=== PATIENT | male | born 1940 | race Caucasian/White ===

== ENCOUNTER 2017-07-15 15:57 | Emergency (ER) | payer OTHER ==
[2017-07-15 16:05] VITALS: BMI 28.1
--- NOTE | 2017-07-15 16:10 | PDOC ---
History of Present Illness - General Chief Complaint: Alcohol intoxication Stated Complaint: ALCOHOL INTOX Time Seen by Provider: 07/15/17 16:00 - History of Present Illness Initial Comments: 07/15/17 16:09 76 yo M with h/o HTN, HLD, who presents with fall 2/2 EtOH intoxication. Patient family at bedside to assist in report. 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 Witnessed by neighbor who called EMS. Patient denies head/neck/back trauma. Denies N/V, F/C, SOB, CP, lightheadedness, urinary complaints, abdominal pain, diarrhea, constipation, weakness, sensory changes, SAUL. Daughter reports daily alcohol intoxication for the past 15-20 years. He has frequent remission-relapsing periods for 6 months at a time. Patient reports no interest in rehabilitation. Denies tobacco or h/o IV drug use. Past History - Past Medical History Allergies/Adverse Reactions: Allergies Allergy/AdvReac Type Severity Reaction Status Date / Time No Known Allergies Allergy Verified 07/15/17 16:05 Home Medications: Ambulatory Orders Amlodipine Besylate 5 mg PO DAILY 07/15/17 Lovastatin 20 mg PO DAILY 07/15/17 Triamterene/Hydrochlorothiazid [Triamterene-Hctz 37.5-25 mg Cp] 1 each PO DAILY 07/15/17 COPD: No HTN: Yes Hypercholesterolemia: Yes - Suicide/Smoking/Psychosocial Hx Smoking Status: No Smoking History: Never smoked Have you smoked in the past 12 months: No Number of Cigarettes Smoked Daily: 0 Information on smoking cessation initiated: No Hx Alcohol Use: No Drug/Substance Use Hx: No Substance Use Type: Alcohol Review of Systems - Review of Systems Comments:: 07/15/17 16:10 GENERAL/CONSTITUTIONAL: No fever or chills. No weakness. HEAD, EYES, EARS, NOSE AND THROAT: No change in vision. No ear pain or discharge. No sore throat.- CARDIOVASCULAR: No chest pain or shortness of breath RESPIRATORY: No cough, wheezing, or hemoptysis. GASTROINTESTINAL: No nausea, vomiting, diarrhea or constipation. GENITOURINARY: No dysuria, frequency, or change in urination. MUSCULOSKELETAL: No joint or muscle swelling or pain. No neck or back pain. SKIN: No rash NEUROLOGIC: No headache, vertigo, loss of consciousness, or change in strength/ sensation. ENDOCRINE: No increased thirst. No abnormal weight change HEMATOLOGIC/LYMPHATIC: No anemia, easy bleeding, or history of blood clots. ALLERGIC/IMMUNOLOGIC: No hives or skin allergy. *Physical Exam - Vital Signs Last Vital Signs Temp Pulse Resp BP Pulse Ox 97 F L 92 H 18 134/69 95 07/15/17 16:00 07/15/17 16:00 07/15/17 16:00 07/15/17 16:00 07/15/17 16:00 - Physical Exam Comments: 07/15/17 16:10 GENERAL: Awake, alert, and fully oriented, in no acute distress HEAD: No signs of trauma, normocephalic, atraumatic EYES: PERRLA, EOMI, sclera anicteric, conjunctiva clear ENT: Auricles normal inspection, hearing grossly normal, nares patent, oropharynx clear without exudates. Moist mucosa NECK: Normal ROM, supple, no lymphadenopathy, JVD, or masses LUNGS: No distress, speaks full sentences, clear to auscultation bilaterally HEART: Regular rate and rhythm, normal S1 and S2, no murmurs, rubs or gallops, peripheral pulses normal and equal bilaterally. ABDOMEN: Soft,, distended, normoactive bowel sounds. No guarding, no rebound. No masses EXTREMITIES : Normal inspection, Normal range of motion, no edema. No clubbing or cyanosis. NEUROLOGICAL: Ataxic gait. Cranial nerves II through XII grossly intact. Normal speech, no focal sensorimotor deficits. SKIN: Warm, Dry, normal turgor, no rashes or lesions noted. ED Treatment Course - LABORATORY CBC & Chemistry Diagram: 07/15/17 16:40 07/15/17 16:40 Medical Decision Making - Medical Decision Making 07/15/17 16:35 76 yo M with h/o HTN, HLD, EtoH dependence who presents with fall 2/2 EtOH intoxication 1 hour SHOW HOST OR HOSTESS coming home from bar. Patient denies head/neck/back trauma. Denies N/V, F/C, SOB, CP, lightheadedness, urinary complaints, abdominal pain, diarrhea, constipation, weakness, sensory changes, SALU. Daughter reports daily alcohol intoxication for the past 15-20 years. Patient reports no interest in rehabilitation detox program. Physical exam unremarkable. Head is atraumatic with neg midline spinal tenderness. Gait slightly ataxic. Hemodynamically stable. No evidence of basilar skull fracture on physical exam ( postauricular echymosis, perioribtal ecchymosis, CSF rhinorrhea). Absent s/s of alcoholic withdrawal. Will obtain formal head and neck imaging in setting of EtoH intoxication, age, comorbidities. Will also assess for underlying precipitators such as electrolyte abnormalities, metaboilic disturbances, or infection. ED Course: CBC, CMP, Cardiac Pr., POC Glucose EKG, CXR, UA Banan Bag CT HEAD, C-SPINE 07/15/17 17:34 CBC/CMP: Unremarkable 07/15/17 18:08 Alcohol level: 371 07/15/17 18:09 UA: Neg 07/15/17 18:38 EKG: NSR with absent PAMELA, STD, or TWI. Absent STD, or PAMELA. CXR CT HEAD, CT C SPINE: Unremarkable. No acute fracture,or subluxation. No acute intracranial hemorrhage Patient stable at bedside and safe for d/c with return precautions. *DC/Admit/Observation/Transfer Diagnosis at time of Disposition: Alcohol abuse Fall Qualifiers: Encounter type: initial encounter Qualified Code(s): W19.XXXA - Unspecified fall, initial encounter - Discharge Dispostion Disposition: HOME Condition at time of disposition: Stable - Referrals Referrals: Solitario Tamayo [Primary Care Provider] - - Patient Instructions Printed Discharge Instructions: DI for Alcohol Abuse Additional Instructions: Please return to the emergency department with any new or worsening symptoms or concerns. Please follow up with your primary medical doctor within one week. - Post Discharge Activity - Attestations Physician Attestion: 07/15/17 18:46 I attest to the information provided in this note.
[2017-07-15] MEDS ORDERED: FOLIC ACID INJECTION - 1 MG, THIAMINE HCL 100 MG, MULTIVIT INJECTION ADULT 10 ML in SOD... IVPB ONE (16:19)
[2017-07-15 17:32] LABS: BASO % 0.4 % (0-2.0); EOS % 2.8 % (0-4.5); HEMATOCRIT 47.2 % (35.4-49); HEMOGLOBIN 15.5 GM/dL (11.7-16.9); LYMPH % 29.3 % (8-40); MCH 32.6 pg (25.7-33.7); MEAN PLT VOLUME 7.7 fl (7.5-11.1); MONO % 8.8 % (3.8-10.2); NEUT % 58.7 % (42.8-82.8); PLATELET COUNT 166 K/MM3 (134-434); RBC 4.76 M/mm3 (4.00-5.60); RDW 15.8 % (11.9-15.9)
[2017-07-15 17:42] LABS: URINE APPEARANCE CLEAR; URINE BILIRUBIN NEGATIVE (NEGATIVE); URINE BLOOD NEGATIVE (NEGATIVE); URINE COLOR STRAW; URINE GLUCOSE (UA) NEGATIVE (NEGATIVE); URINE KETONE NEGATIVE (NEGATIVE); URINE LEUK ESTERASE NEGATIVE (NEGATIVE); URINE NITRITE NEGATIVE (NEGATIVE); URINE PROTEIN NEGATIVE (NEGATIVE); URINE UROBILINOGEN NEGATIVE mg/dL (0.2-1.0)
[2017-07-15 18:00] LABS: ALBUMIN 4.3 g/dl (3.4-5.0); ANION GAP 10 (8-16); BLOOD UREA NITROGEN 9 mg/dL (7-18); CALCIUM 8.8 mg/dL (8.5-10.1); CHLORIDE 104 mmol/L (98-107); CO2 29 mmol/L (21-32); CREATININE 0.8 mg/dL (0.7-1.3); GLUCOSE,RANDOM 95 mg/dL (74-106); SGOT/AST 108 U/L (15-37); SGPT/ALT 84 U/L (12-78); SODIUM 143 mmol/L (136-145)
[2017-07-15 18:03] LABS: ALK PHOS 108 U/L (45-117); BILIRUBIN,TOTAL 0.6 mg/dL (0.2-1.0)
[2017-07-15 18:06] LABS: LIPASE 313 U/L (73-393)
--- NOTE | 2017-07-15 18:59 | PDOC ---
Attending Attestation - Resident Resident Name: EvgenyJohnScotty - ED Attending Attestation I have performed the following: I have examined & evaluated the patient, The case was reviewed & discussed with the resident, I agree w/resident's findings & plan, Exceptions are as noted - HPI HPI: 07/15/17 18:57 76 yo BIBA after falling at home admits to drinking alcohol ,family is present - Physicial Exam PE: 07/15/17 18:59 76 yo male YAW after falling head no scalp lacerations neck no cervical vertebral tenderenss lungs cta b/l 'cvs [id number] abd nontendner extremities no deformities,moving all limbs neuro axox3 despite alcohol intake - Medical Decision Making 07/15/17 19:01 ct head no acute intracranil pathology no fx,no bleed ct neck no acute fracture
[2017-07-15 19:19] VITALS: BP 135/78; PULSE 86; TEMP 97.8
--- NOTE | 2017-07-16 12:49 | EKG ---
Test Reason : Blood Pressure : / mmHG Vent. Rate : 082 BPM Atrial Rate : 246 BPM P-R Int : 000 ms QRS Dur : 090 ms QT Int : 398 ms P-R-T Axes : 103 038 029 degrees QTc Int : 464 ms SINUS RHYTHM WITH 1ST DEGREE AV BLOCK ABNORMAL ECG WHEN COMPARED WITH ECG OF 13-FEB-2015 19:15, NO SIGNIFICANT CHANGE WAS FOUND Confirmed by LUIS FALL MD ([id number]) on 07/16/2017 12:48:49 PM Referred By: Confirmed By:LUIS FALL MD
== END 2017-07-15 19:29 | disposition home or self-care (01) ==
LOC: JER 15:57
DX: F10.220 Alcohol dependence with intoxication, uncomplicated (principal); Y90.8 Blood alcohol level of 240 mg/100 ml or more; S00.83XA Contusion of other part of head, initial encounter; W18.39XA Other fall on same level, initial encounter; Y93.89 Activity, other specified; Y92.014 Private driveway to single-family (private) house as the place of occurrence of the external cause; Y99.8 Other external cause status
CPT/HCPCS: 36415; 70450-TC; 71045-TC; 72125-TC; 80053; 80307; 81003; 82550; 82553; 83690; 84484; 85025; 93005; 93010; 99283-25

== ENCOUNTER 2017-08-12 18:25 | Emergency (ER) | payer OTHER, BC ==
[2017-08-12 18:32] VITALS: PULSE 72; TEMP 97.7; BMI 26.6
--- NOTE | 2017-08-12 18:47 | PDOC ---
History of Present Illness - History of Present Illness Initial Comments: 08/12/17 18:54 Patient is a 77 M, with PMHx of HTN, HLD, former heavy EtOH use, who presents today for 1 week of constipation. Patient states that he quit drinking alcohol 5 weeks ago. He reports that for the past week hes been experiencing constipation. He took the [place] version of Dulcolax 5 days ago and has been experiencing episodes of diarrhea. He states he hasn't have a bowel movement since. Today the patients' daughter gave him Miralax with coffee at 1:00 pm. He also reports 1 week of shooting left leg pain when he wakes up at 3-4 am that last for approximately 5-10 minutes. He reports no changes in his eating habits. He states he is able to pass gas normally. He denies abdominal pain, vomiting, fever, no new urinary complaints. Social Hx: ceased EtOH use 5 weeks ago. <Jackie Miller - Last Filed: 08/12/17 19:02> <Shelia Cazares - Last Filed: 08/20/17 20:01> - General Chief Complaint: Constipation Stated Complaint: constipation Time Seen by Provider: 08/12/17 18:47 Past History <Jackie Miller - Last Filed: 08/12/17 19:02> - Past Medical History COPD: No HTN: Yes Hypercholesterolemia: Yes - Suicide/Smoking/Psychosocial Hx Smoking Status: No Smoking History: Never smoked Have you smoked in the past 12 months: No Number of Cigarettes Smoked Daily: 0 Hx Alcohol Use: No Drug/Substance Use Hx: No Substance Use Type: Alcohol <Shelia Cazares - Last Filed: 08/20/17 20:01> - Past Medical History Allergies/Adverse Reactions: Allergies Allergy/AdvReac Type Severity Reaction Status Date / Time No Known Allergies Allergy Verified 08/12/17 18:26 Home Medications: Ambulatory Orders Amlodipine Besylate 5 mg PO DAILY 07/15/17 Lovastatin 20 mg PO DAILY 07/15/17 Triamterene/Hydrochlorothiazid [Triamterene-Hctz 37.5-25 mg Cp] 1 each PO DAILY 07/15/17 Bisacodyl [Dulcolax] 5 mg PO DAILY #30 tablet. 08/12/17 Review of Systems - Review of Systems Comments:: 08/12/17 18:54 GENERAL/CONSTITUTIONAL: No fever or chills. No weakness. HEAD, EYES, EARS, NOSE AND THROAT: No change in vision. No ear pain or discharge. No sore throat. CARDIOVASCULAR: No chest pain or shortness of breath. RESPIRATORY: No cough, wheezing, or hemoptysis. GASTROINTESTINAL: No nausea, no vomiting, +diarrhea, +constipation. GENITOURINARY: No dysuria, frequency, or change in urination. MUSCULOSKELETAL: +left leg pain. No joint swelling or pain. No neck or back pain. SKIN: No rash NEUROLOGIC: No headache, vertigo, loss of consciousness, or change in strength/ sensation. ENDOCRINE: No increased thirst. No abnormal weight change. HEMATOLOGIC/LYMPHATIC: No anemia, easy bleeding, or history of blood clots. ALLERGIC/IMMUNOLOGIC: No hives or skin allergy. <Jackie Miller - Last Filed: 08/12/17 19:02> *Physical Exam - Vital Signs Last Vital Signs Temp Pulse Resp BP Pulse Ox 97.7 F 72 18 176/95 97 08/12/17 18:26 08/12/17 18:26 08/12/17 18:26 08/12/17 18:26 08/12/17 18:26 - Physical Exam Comments: 08/12/17 18:55 GENERAL: Awake, alert, and fully oriented, in no acute distress HEAD: No signs of trauma EYES: PERRLA, EOMI, sclera anicteric, conjunctiva clear ENT: Auricles normal inspection, hearing grossly normal, nares patent, oropharynx clear without exudates. Moist mucosa NECK: Normal ROM, supple, no lymphadenopathy, JVD, or masses LUNGS: Breath sounds equal, clear to auscultation bilaterally. No wheezes, and no crackles HEART: Regular rate and rhythm, normal S1 and S2, no murmurs, rubs or gallops ABDOMEN: Obese, soft, nontender, non distended, normoactive bowel sounds. No guarding, no rebound. No masses EXTREMITIES: Normal range of motion, no edema. No clubbing or cyanosis. No cords, erythema, or tenderness NEUROLOGICAL: Cranial nerves II through XII grossly intact. Normal speech, normal gait SKIN: Warm, Dry, normal turgor, no rashes or lesions noted. <Jackie Miller - Last Filed: 08/12/17 19:02> - Vital Signs Last Vital Signs Temp Pulse Resp BP Pulse Ox 97.7 F 72 18 176/95 97 08/12/17 18:26 08/12/17 18:26 08/12/17 18:26 08/12/17 18:26 08/12/17 18:26 <Shelia Cazares - Last Filed: 08/20/17 20:01> ED Treatment Course - LABORATORY CBC & Chemistry Diagram: 08/12/17 19:15 08/12/17 19:15 <Shelia Cazares - Last Filed: 08/20/17 20:01> Medical Decision Making - Medical Decision Making 08/20/17 20:00 Pt presents to the ED complaining of intermittent constipation without other signs or symptoms constistent with obstruction. Will check albs and KUB and discharge home if negative. <Shelia Cazares - Last Filed: 08/20/17 20:01> *DC/Admit/Observation/Transfer - Attestations Scribe Attestion: 08/12/17 18:56 Documentation prepared by Jackie Miller, acting as medical accounts receivable specialist for Shelia Cazares MD. <Jackie Miller - Last Filed: 08/12/17 19:02> <Shelia Cazares - Last Filed: 08/20/17 20:01> Diagnosis at time of Disposition: Constipation - Discharge Dispostion Disposition: HOME Condition at time of disposition: Stable - Prescriptions Prescriptions: Bisacodyl [Dulcolax] 5 mg PO DAILY #30 tablet.dr - Patient Instructions Additional Instructions: Purchase some [id number]-tfo-swvsigl fiber all her Metamucil and take as directed on the bottle. In addition to that take 1 Dulcolax a day if you find out 1 Dulcolax a day in addition to the Fiberall is giving U diarrhea. The Dulcolax to continue the Fiberall. Call your doctor on Sunday and get an appointment for this next week if at all possible. Return to the emergency department immediately with ANY new, persistent or worsening symptoms. Continue any medications as previously prescribed by your physician. You should follow up with your primary doctor as soon as possible regarding today's emergency department visit. . Please make sure your doctor reviews the results of your emergency evaluation. Thank you for coming to the Emergency Department today for your care. It was a pleasure to see you today. Please note that your evaluation is INCOMPLETE until you follow-up with your doctor.
--- NOTE | 2017-08-12 19:30 | PDOC ---
*Physical Exam - Vital Signs Last Vital Signs Temp Pulse Resp BP Pulse Ox 97.7 F 72 18 176/95 97 08/12/17 18:26 08/12/17 18:26 08/12/17 18:26 08/12/17 18:26 08/12/17 18:26 ED Treatment Course - LABORATORY CBC & Chemistry Diagram: 08/12/17 19:15 08/12/17 19:15 Progress Note - Progress Note Progress Note: 19:00 Care of this patient was transferred to [place] from Dr. Cazares at 1900 hrs. This is a 77-year-old male who has had no bowel movement 5 days and was brought in by his family to rule out obstruction. Patient has no complaints of abdominal pain there's been no vomiting or nausea. There's been no fevers or any other complaints. Patient has a significant history of chronic heavy alcohol use which he stopped 5 weeks ago and says he has not had anything to drink 5 weeks. Will follow-up with KUB x-rays and labs. We will reassess. 19:30 KUB shows multiple dilated loops of bowel however is a supine x-ray so unable to determine if there is air-fluid levels but most likely given the large amount of dilated bowel that there is a probable obstruction. CT abdomen and pelvis ordered with IV contrast. 20:30 CT abdomen and pelvis show no obstruction. There is multiple loops that are air- filled in the upper abdomen with a moderate amount of stool in the colon. Otherwise no acute pathology. 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 Patient appears to be in a constipation cycle this time a complete workup was done as he is elderly and has not been worked up for these symptoms. He has a normal CBC a normal white count and no left shift. His chemistries are also normal. He had a CAT scan that was essentially normal with the exception of constipation. I discussed with him and his daughter the importance of staying well hydrated, getting some Metamucil or fiber and taking on a daily basis. I also said a prescription for Dulcolax to the pharmacy that he can take if the Metamucil was not enough I also instructed him his daughter to call his primary care doctor and push to get an appointment as soon as possible *DC/Admit/Observation/Transfer Diagnosis at time of Disposition: Constipation Qualifiers: Constipation type: slow transit constipation Qualified Code(s): K59.01 - Slow transit constipation - Discharge Dispostion Disposition: HOME Condition at time of disposition: Stable Admit: No - Prescriptions Prescriptions: Bisacodyl [Dulcolax] 5 mg PO DAILY #30 tablet. - Referrals - Patient Instructions Additional Instructions: Purchase some [id number]-[id number] fiber all her Metamucil and take as directed on the bottle. In addition to that take 1 Dulcolax a day if you find out 1 Dulcolax a day in addition to the Fiberall is giving U diarrhea. The Dulcolax to continue the Fiberall. Call your doctor on Sunday and get an appointment for this next week if at all possible. Return to the emergency department immediately with ANY new, persistent or worsening symptoms. Continue any medications as previously prescribed by your physician. You should follow up with your primary doctor as soon as possible regarding today's emergency department visit. . Please make sure your doctor reviews the results of your emergency evaluation. Thank you for coming to the Emergency Department today for your care. It was a pleasure to see you today. Please note that your evaluation is INCOMPLETE until you follow-up with your doctor. - Post Discharge Activity
[2017-08-12 19:39] LABS: BASO % 0.5 % (0-2.0); EOS % 6.6 % (0-4.5); HEMATOCRIT 46.9 % (35.4-49); HEMOGLOBIN 15.8 GM/dl (11.7-16.9); LYMPH % 24.5 % (8-40); MCH 32.7 pg (25.7-33.7); MCHC 33.7 g/dl (32.0-35.9); MEAN CELL VOLUME 97.1 fl (80-96); MEAN PLT VOLUME 8.5 fl (7.5-11.1); MONO % 8.4 % (3.8-10.2); PLATELET COUNT 231 K/MM3 (134-434); RBC 4.83 M/mm3 (4.00-5.60); RDW 14.2 % (11.9-15.9); WHITE BLOOD COUNT 8.1 K/mm3 (4.0-10.8)
[2017-08-12 19:49] LABS: ALBUMIN 4.4 g/dl (3.5-5.0); ALK PHOS 74 U/L (32-92); ANION GAP 7 (8-16); BILIRUBIN,TOTAL 0.9 mg/dl (0.2-1.0); BLOOD UREA NITROGEN 10 mg/dl (7-18); CALCIUM 9.7 mg/dl (8.4-10.2); CHLORIDE 100 mmol/L (98-107); CO2 30 mmol/L (22-28); GLUCOSE,RANDOM 99 mg/dl (74-106); POTASSIUM 3.8 mmol/L (3.5-5.1); SGOT/AST 33 U/L (10-42); SGPT/ALT 27 U/L (10-40); SODIUM 137 mmol/L (136-145); TOT PROT 7.2 g/dl (6.4-8.3)
[2017-08-12 20:06] LABS: CREATININE 0.8 mg/dl (0.6-1.3)
[2017-08-12 21:01] VITALS: BP 152/88
== END 2017-08-12 22:38 | disposition home or self-care (01) ==
LOC: FER 18:25
DX: K59.01 Slow transit constipation (principal); I10 Essential (primary) hypertension; E78.5 Hyperlipidemia, unspecified; F10.21 Alcohol dependence, in remission
CPT/HCPCS: 36415; 71046-TC-FY; 74018-TC-FY; 74177-TC; 80053; 85025; 99283-25

== ENCOUNTER 2021-09-04 11:30 | Emergency (ER) | payer OTHER ==
[2021-09-04 11:50] VITALS: TEMP 97.7; BMI 29.1
[2021-09-04] MEDS ORDERED: DIPHTH,PERTUSS(ACELL),TET 0.5 ML DISP.SYRIN IM ONE ×2 (11:52→11:54)
[2021-09-04] MEDS ORDERED: ACETAMINOPHEN 325 MG TABLET (FP) PO ONE (12:04)
[2021-09-04] MEDS ORDERED: ACETAMINOPHEN 325 MG TABLET (FP) ONE (12:22)
[2021-09-04 14:44] VITALS: BP 145/63; PULSE 79
== END 2021-09-04 14:25 | disposition home or self-care (01) ==
LOC: FER 11:30
PROC: 3E0234Z Introduction of Serum, Toxoid and Vaccine into Muscle, Percutaneous Approach (ICD-10-PCS; principal; 2021-09-04)
DX: S00.83XA Contusion of other part of head, initial encounter (principal); S80.212A Abrasion, left knee, initial encounter; S60.122A Contusion of left index finger with damage to nail, initial encounter; S69.92XA Unspecified injury of left wrist, hand and finger(s), initial encounter; W01.0XXA Fall on same level from slipping, tripping and stumbling without subsequent striking against object, initial encounter
CPT/HCPCS: 70450-TC; 70486-TC; 72125-TC; 73110-TC-LT-FY; 73130-TC-LT-FY; 90471; 90715; 99284-25